=== PATIENT | male | born 1965 | race Caucasian/White ===

== ENCOUNTER 2021-02-01 11:44 | Outpatient (CLI) | payer OTHER ==
[~2021-02-01 11:44] MED LIST: BACL-11 PO; CARV-50 PO; CEFU500T66 PO; FURO-150 PO; HYDR-3965 PO; LISI20TA28 PO; POTA8CAP20 PO; WARF-55 PO
[2021-02-01] MEDS ORDERED: GADOTERATE MEGLUMINE 7.5 MMOL/15 ML VIAL IV ONE (15:33)
== END 2021-02-01 23:59 | disposition home or self-care (01) ==
LOC: RAD 11:44
PROVIDERS: ATTEND Emergency Medicine
DX: L89.154 Pressure ulcer of sacral region, stage 4 (principal); M16.0 Bilateral primary osteoarthritis of hip
CPT/HCPCS: A9575; C8920